=== PATIENT | male | born 1955 | race American Indian/Alaskan Native ===

== ENCOUNTER 2019-09-18 10:20 | Day surgery (SDC) | payer OTHER ==
[~2019-09-18 10:20] MED LIST: SODIUM CHLORIDE 0.9% 1000 ML 1,000 ML IV SCH
--- NOTE | 2019-09-18 11:38 | Anesthesia Day of Surgery ---
Anesthesia Day of Surgery - Day of Surgery Patient Examined: Yes Patient H&P Reviewed: Yes Patient is NPO: Yes
--- NOTE | 2019-09-18 11:43 | Anesthesia Consultation ---
Anesthesia Consult and Med Hx Date of service: 09/18/19 - Airway Anesthetic Teeth Evaluation: Chipped ROM Head & Neck: Adequate Mental/Hyoid Distance: Adequate Mallampati Class: Class II Intubation Access Assessment: Good - Pre-Operative Health Status ASA Pre-Surgery Classification: ASA3 Proposed Anesthetic Plan: MAC - Pulmonary Hx Smoking: Yes Hx Asthma: Yes - Cardiovascular System Hx Cardia Arrhythmia: Yes (Had ETT last year and ok per pt. States he can climb two flights of stairs) - Central Nervous System Hx Back Pain: Yes - Gastrointestinal Hx Gastroesophageal Reflux Disease: Yes - Other Systems Hx Alcohol Use: Yes
[2019-09-18] MEDS ORDERED: PROPOFOL 200 MG/20 ML VIAL IV ONE ×2 (13:19)
--- NOTE | 2019-09-18 14:17 | Procedure Note ---
Date of procedure: 09/18/19 Pre-op diagnosis: GERD/Colon Polyp Screening/H/O Colon Polyp Post-op diagnosis: other (Moderate,Erosive Esophagitis/Small Hiatal Hernia/Moderately,Severe Gastric Erosion/Gastritis/Multiple,Small Duodenal Ulcers/Descending colon Polyp/Solitary,Rectal Polyp (possibly hyperplastic)/[place] Hemorrhoids/ No Diverticular Disease noted) Anesthesia: MAC Surgeon: ZAC JERONIMO Estimated blood loss: minimal Pathology: list Specimen disposition: to lab Condition: stable Disposition: same day
--- NOTE | 2019-09-18 14:19 | Operative Report ---
PROCEDURE: Colonoscopy with snare polypectomy and cold biopsy. INDICATIONS: A 64-year-old -[place] gentleman who has a history of smoking, tobacco use. EGD done prior to the colonoscopy because of GERD symptoms had shown presence of multiple duodenal ulcers, gastric erosion, mild portal gastropathy, small hiatal hernia and moderately severe erosive esophagitis. Colonoscopy was done as part of colon polyp screening. Last colonoscopy, the patient had done was 5 years ago. He was said to have had a few polyps at that time. DESCRIPTION OF PROCEDURE: The procedure was done after getting informed consent with MAC anesthesia. Initial rectal exam was unremarkable. Instrument was passed through the rectum onto the cecum, which was identified with ileocecal valve and appendiceal orifice. Visualization was fair. The terminal ileum was intubated, showed normal mucosa. The cecum was also examined in the retroverted view. No additional pathology was noted in the cecum, ascending colon. Likewise the transverse colon showed normal mucosa. In the proximal descending colon, there was a 10 mm sessile polyp noted that was removed by snare excision and retrieved. The remaining part of the descending and the sigmoid colon showed normal mucosa. There were a small possibly hyperplastic solitary polyp noted in the rectum that was removed by cold biopsy and the rectum showed some minor internal hemorrhoid on the retroverted view. There was minimal bleeding from the polypectomy sites and no complications associated with the procedure. ASSESSMENT: Colon polyp screening, past history of colon polyp, descending colon polyp which was solitary, solitary small rectal polyp, possibly hyperplastic. Minor internal hemorrhoid. No diverticular disease was noted. The patient will be asked to avoid aspirin and aspirin-related products for the next few days. Otherwise, resume home medication. Follow up in the office in 1-2 weeks' time. The patient will be treated on PPI because of the EGD findings of multiple duodenal ulcers as well as severe gastric erosion and moderate erosive esophagitis and the patient will also be asked to refrain from tobacco and alcohol products. The procedure was done in the GI lab with assistance of the GI lab team, which included YURI Bkaer and darwin Veliz and with assistance of anesthesia. JOB# [id number] YUDY/PATRIA
--- NOTE | 2019-09-18 14:34 | Operative Report ---
PROCEDURE: Esophagogastroduodenoscopy with biopsy. INDICATIONS: A 64-year-old -[place] gentleman, who has been having GERD symptoms. EGD was done to assess for the problem. DESCRIPTION OF PROCEDURE: Procedure was done after getting informed consent with MAC anesthesia. Instrument was passed through the hypopharynx to the esophagus, which showed moderate erosive esophagitis. The stomach showed a small hiatal hernia on the retroverted view and moderately severe gastric erosion and gastritis with some mild gastropathy. Gastropathy was most pronounced in the proximal stomach. The gastric erosion was in the antrum. Pylorus is patent. The duodenum and the bulb showed duodenal ulcers, which were multiple and small. Biopsies were done from the gastric antrum, gastric body, and angular incisura as well as from the distal esophagus to assess for the severity of the erosive esophagitis. There was minimum bleeding associated with the procedure. No complications associated with the procedure. ASSESSMENT: Gastroesophageal reflux disease symptoms, moderate erosive esophagitis, small hiatal hernia, moderately severe gastric erosion and gastritis, and multiple duodenal ulcers. PLAN: To treat the patient with PPI and have the patient avoid aspirin and aspirin-related products for the next few days. A colonoscopy will be done as part of colon polyp screening. The patient will be asked to follow up in the office in 1-2 weeks' time. The patient will also be asked to avoid aspirin and aspirin-related products and anticoagulants for the next 4 days and will be treated with PPIs and also encouraged to refrain from using tobacco and alcohol products. Procedure was done in the GI lab with the assistance of the GI lab team, which included YURI Baker as well as Jose Alfredo granados and the assistance of anesthesia. JOB# [id number] YUDY/PATRIA
[2019-09-18] MEDS ORDERED: ONDANSETRON 4 MG/2 ML INJ ONE (14:52)
[2019-09-18] MEDS ORDERED: LIDOCAINE MPF (2%) 20 MG/1 ML VIAL 5 ML ONE (15:00)
[2019-09-18] MEDS ORDERED: SODIUM CHLORIDE 0.9% 1000 ML 1,000 ML IV ONE (15:10)
[2019-09-18 16:07] VITALS: BP 144/95
[2019-09-18] MEDS ORDERED: ONDANSETRON 4 MG/2 ML INJ IV ONE (16:09)
--- NOTE | 2019-09-19 08:47 | Post Anesthesia Evaluation ---
- Post Anesthesia Evaluation Patient Participated: Yes Airway Patent: Yes Stable Respiratory Function: Yes Nausea/Vomiting: No Temp > 96.8F: Yes Pain Manageable: Yes Adequeate Hydration: Yes Anesthesia Complications: No Block Receding Appropriately: Not Applicable Patient on Ventilator: No
== END 2019-09-18 16:28 | disposition home or self-care (01) ==
LOC: GIO 10:20
DX: Z12.11 Encounter for screening for malignant neoplasm of colon (principal); K62.1 Rectal polyp; D12.4 Benign neoplasm of descending colon; K21.0 Gastro-esophageal reflux disease with esophagitis; K44.9 Diaphragmatic hernia without obstruction or gangrene; K31.89 Other diseases of stomach and duodenum; K64.8 Other hemorrhoids; I42.9 Cardiomyopathy, unspecified; J45.909 Unspecified asthma, uncomplicated; Z86.010 Personal history of colon polyps; F17.210 Nicotine dependence, cigarettes, uncomplicated; Z79.899 Other long term (current) drug therapy; Z72.89 Other problems related to lifestyle
CPT/HCPCS: 43239; 45380; 45385; 88305; 88342; J2405; J2704; J7030

== ENCOUNTER 2022-06-27 15:27 | Emergency (ER) | payer OTHER | END 2022-06-27 17:28 | disposition left against medical advice (07) | LOC: ED 15:27 | DX: M25.512 Pain in left shoulder (principal); Z53.21 Procedure and treatment not carried out due to patient leaving prior to being seen by health care provider; V89.2XXA Person injured in unspecified motor-vehicle accident, traffic, initial encounter; Y93.89 Activity, other specified; Y92.89 Other specified places as the place of occurrence of the external cause; Y99.8 Other external cause status ==